=== PATIENT | male | born 1985 | race Caucasian/White ===

== ENCOUNTER 2017-04-23 20:08 | Emergency (ER) | payer MEDICARE ==
[~2017-04-23 20:08] MED LIST: AMITRIPTYLINE25 MG PEG; AMOXICILLIN 8751 TAB PO; AMOXICILLIN/CLA1 TA1 PO; ANTIBIOTIC; BACLOFEN PO; BACLOFEN20 MG PO; BACTRIM DS 8001 TAB PO; BUSPAR10 MG PEG; CELEXA10 MG PO; CELEXA40 MG PEG; CEPHALEXIN500 M1 PO; COMBIVENT INH14.7 GM IH; DOXYCYCLINE 10100 MG PO; FLEXERIL 1010 MG/TAB PEG; FLONASEALLERGY NS; FLOXIN OTIC DROP5 ML OT; GABAPENTIN PEG; GABAPENTIN300 M1 PO; KLONOPIN 0.5MG0.5 MG PO; LORTAB 5/500 501 TAB PO; MINOCYCLINE100 MG PEG; MINOCYCLINE100 MG PO; NO HOME MEDICATIONS; NORCO 325 MG-51 TA1 PO; NORCO 325 MG-51 TAB PO; NORCO 325 MG-7.1 TAB PO; OMEPRAZOLE D/R20 MG PO; OMNICEF 300MG300 MG PO; OXY IR5 MG PO; PERCOCET 325 MG1 TA2 PO; PERCOCET 325 MG1 TAB PO; PHENERGAN 25 TA25 MG PO; PHENERGAN25 MG RC; PRILOSEC 20MG20 MG PEG; SEROQUEL100 MG PO; SEROQUEL200 MG PO; TUSS PO; XANAX 0.5MG0.5 MG PO; ZANAFLEX CAPSULE6 MG PO; ZOFRAN 4MG T4 MG/TAB PO
[2017-04-23 20:14] VITALS: BP 138/78; TEMP 97.9
[2017-04-23] MEDS ORDERED: NORCO 325 MG-51 TAB PO (21:05)
[2017-04-23 21:19] VITALS: PULSE 102
== END 2017-04-23 21:20 | disposition home or self-care (01) ==
LOC: COL.ER 20:08
DX: M53.3 Sacrococcygeal disorders, not elsewhere classified (principal); W01.0XXA Fall on same level from slipping, tripping and stumbling without subsequent striking against object, initial encounter

== ENCOUNTER 2018-05-09 04:34 | Observation (INO) | payer MEDICARE, MEDICAID ==
[~2018-05-09] VITALS: Ht 182.9 cm; Wt 73.3 kg
[2018-05-09] VITALS (7 sets, daily range): BP systolic 93–118; BP diastolic 52–66; PULSE 70–90; TEMP 98–98.1
[2018-05-09 05:50] LABS: BASO # 0.1 (0.0-0.2); BASO % 0.7 % (0.0-2.0); EOS # 0.2 (0.0-0.7); EOS % 2.4 % (0-4.0); GRAN # 3.8 (1.4-6.5); GRAN % 55.9 % (42.2-75.2); HEMATOCRIT 46.2 % (42.0-52.0); HEMOGLOBIN 15.4 g/dl (13.5-18.0); LYMPH # 2.1 (1.2-3.4); MEAN CELL VOLUME 90 fl (80.0-100.0); MEAN CORPUSCULAR HEMOGLOBIN 30 pg (27.0-31.0); MEAN CORPUSCULAR HGB CONC 33 g/dl (33.0-37.0); MEAN PLATELET VOLUME 10.1 fl (7.4-10.4); MONO # 0.7 (0.1-0.6); MONO % 9.6 % (1.7-9.3); PLATELET COUNT 372 K/mm3 (130-400); RED BLOOD COUNT 5.11 M/mm3 (4.20-5.60); REDCELL DISTRIBUTION WIDTH-CV 12.3 % (11.5-14.5)
[2018-05-09 06:05] LABS: ALANINE AMINOTRANSFERASE 23 U/L (21-72); ALBUMIN 3.9 gm/dL (3.5-5.0); ALKALINE PHOSPHATASE 57 U/L (50-136); ANION GAP 6 mmol/L (7-16); AST,SGOT 32 U/L (15-37); BILIRUBIN,TOTAL 0.8 mg/dL (0.0-1.0); BLOOD UREA NITROGEN 11 mg/dL (9-20); CALCIUM 9.3 mg/dL (8.4-10.2); CARBON DIOXIDE 30 mmol/L (22-30); CHLORIDE 100 mmol/L (98-107); CREATININE, serum 0.68 mg/dL (0.66-1.25); GLUCOSE 95 mg/dL (74-106); POTASSIUM 4.6 mmol/L (3.4-5.0); SODIUM 137 mmol/L (137-145); TOTAL PROTEIN 7.3 gm/dL (6.4-8.2)
[2018-05-09 06:11] LABS: C-REACTIVE PROTEIN < 0.5 mg/dL (0.0-0.9)
[2018-05-09 06:14] LABS: ERYTHROCYTE SEDIMENTATION RATE 1 mm/hr (0-15)
--- NOTE | 2018-05-09 18:00 | NUR ---
Admission assessments completed. Patient has been sleeping most the time since he arrived from the ED. Pain has been controlled with his home doses of medications. No complaints of nausea. Patieht has been tolerating his diet well. No other changes at this time. Call light within reach.
--- NOTE | 2018-05-09 20:34 | NUR ---
Pt in bed watchinh TV, shift assessments complete, Pt left with call light in reach, bed in lowest position.
[2018-05-10 03:21] VITALS: BP 105/83; PULSE 63; TEMP 97.8
--- NOTE | 2018-05-10 05:27 | NUR ---
Pt has slept some during the night, he has shown no confusion or aggitation, Pt has not C/O pain during the shift, VS have rermained stable.
[2018-05-10 07:21] VITALS: BP 117/69; PULSE 91; TEMP 98.2
--- NOTE | 2018-05-10 09:36 | NUR ---
Patient resting in bed. Reports chronic back pain. Am medications given. Iv antibioics given. Will monitor
[2018-05-10 10:07] LABS: TRICYCLIC ANTIDEPRESS URINE NEGATIVE
[2018-05-10 10:10] LABS: BASO % 0.7 % (0.0-2.0); EOS # 0.1 (0.0-0.7); EOS % 2.4 % (0-4.0); GRAN % 51.5 % (42.2-75.2); HEMATOCRIT 44.9 % (42.0-52.0); HEMOGLOBIN 14.9 g/dl (13.5-18.0); LYMPH # 1.9 (1.2-3.4); LYMPH % 33.1 % (20.0-51.0); MEAN CELL VOLUME 91 fl (80.0-100.0); MEAN CORPUSCULAR HEMOGLOBIN 30 pg (27.0-31.0); MEAN CORPUSCULAR HGB CONC 33 g/dl (33.0-37.0); MEAN PLATELET VOLUME 9.9 fl (7.4-10.4); MONO # 0.7 (0.1-0.6); MONO % 11.8 % (1.7-9.3); PLATELET COUNT 343 K/mm3 (130-400); RED BLOOD COUNT 4.94 M/mm3 (4.20-5.60); REDCELL DISTRIBUTION WIDTH-CV 12.5 % (11.5-14.5)
[2018-05-10 10:19] LABS: CALCIUM 8.7 mg/dL (8.4-10.2); CREATININE, serum 0.65 mg/dL (0.66-1.25); POTASSIUM 4.2 mmol/L (3.4-5.0)
--- NOTE | 2018-05-10 11:27 | NUR ---
SW attended clinical rounds. The patient lives in [place] with his mother, Luann. He reports independence with ADLs and uses a wheelchair for mobility. The patient's PCP is Dr. Rohit Shankar and he receives his medications at the [facility]. He reports no difficulties obtaining his meds. The hospitalist and SW addressed the patient's meth use. 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 The patient reports that this has been motivation to stop using. He states that he receives outpatient treatment at [facility] in [place] and plans to resume that upon discharge. The patient plans to return home with his mother upon discharge. No additional needs at this time.
[2018-05-10] MEDS ORDERED: MONODOX100 PO (12:02)
--- NOTE | 2018-05-10 13:13 | NUR ---
hospitalist team rounded, discharge paperwork completed. 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 Patient knows he needs to stop drug use. He is worried about his mom and his possibilty of having mrsa. We reviewed. Patient wheeled out with all belonings. His mother taking home.
== END 2018-05-10 13:20 | disposition home or self-care (01) ==
LOC: COL.ER 04:34 → SURG 06:45
PROVIDERS: Emergency Medicine; Nurse Practitioner Family; Physician Assistant; ADMIT Internal Medicine
DX: M79.89 Other specified soft tissue disorders (principal); L03.115 Cellulitis of right lower limb; G81.91 Hemiplegia, unspecified affecting right dominant side; F19.10 Other psychoactive substance abuse, uncomplicated; F17.210 Nicotine dependence, cigarettes, uncomplicated; Z85.47 Personal history of malignant neoplasm of testis; Z90.79 Acquired absence of other genital organ(s)
CPT/HCPCS: A4216; G0378; J0696; J1650; J1885; J3370; J7030; J7050

== ENCOUNTER 2019-02-14 07:56 | Emergency (ER) | payer MEDICARE ==
[~2019-02-14] VITALS: Ht 182.9 cm; Wt 72.7 kg
[~2019-02-14 07:56] MED LIST changes: +MONODOX100 PO
--- NOTE | 2019-02-14 10:10 | NUR ---
contacted by emergency department staff to obtain lab. Patient has very limited means for attempting lab draws. Attempted to draw lab from right forearm with a butterfly gauge needle. Attempted twice with site cleansed with ChloraPrep. Lab drawn. Unable to obtain all lab tests as ordered. RN will contact ED physician.
[2019-02-14 10:26] LABS: BASO % 0.6 % (0.0-2.0); EOS # 0.2 (0.0-0.7); EOS % 2.7 % (0-4.0); GRAN # 3.9 (1.4-6.5); GRAN % 61.7 % (42.2-75.2); HEMATOCRIT 40.7 % (42.0-52.0); LYMPH # 1.5 (1.2-3.4); LYMPH % 23.9 % (20.0-51.0); MEAN CELL VOLUME 90 fl (80.0-100.0); MEAN CORPUSCULAR HEMOGLOBIN 31 pg (27.0-31.0); MEAN CORPUSCULAR HGB CONC 34 g/dl (33.0-37.0); MEAN PLATELET VOLUME 10.5 fl (7.4-10.4); MONO # 0.7 (0.1-0.6); MONO % 10.8 % (1.7-9.3); PLATELET COUNT 276 K/mm3 (130-400); RED BLOOD COUNT 4.55 M/mm3 (4.20-5.60)
[2019-02-14 10:36] LABS: ALBUMIN 3.6 gm/dL (3.5-5.0); BILIRUBIN,TOTAL 0.4 mg/dL (0.0-1.0); CALCIUM 8.7 mg/dL (8.4-10.2); CREATININE, serum 0.49 (0.66-1.25); POTASSIUM 4.3 mmol/L (3.4-5.0); TOTAL PROTEIN 6.5 gm/dL (6.4-8.2)
[2019-02-14 11:23] LABS: COLLECTION METHOD CLEAN CATCH
[2019-02-14 11:34] LABS: MUCOUS Present /lpf; PH 7 (5-8); SQUAMOUS EPITHELIAL None Seen /hpf; URINE APPEARANCE Clear; URINE BACTERIA None Seen /hpf; URINE BILIRUBIN Negative (NEGATIVE); URINE BLOOD Negative (NEGATIVE); URINE COLOR Yellow; URINE GLUCOSE Negative (NEGATIVE); URINE KETONE Trace (NEGATIVE); URINE LEUKOCYTE ESTERASE Negative (NEGATIVE); URINE NITRATE Negative (NEGATIVE); URINE PROTEIN(semi-quant) Negative (NEGATIVE); URINE RBC None Seen /hpf
[2019-02-14] MEDS ORDERED: PROAIR HFA0.09 MG/AC IH (12:36)
[2019-02-14] MEDS ORDERED: ZITHROMAX Z PA250 MG PO (12:36)
[2019-02-14] MEDS ORDERED: PREDNISONE20 MG PO (12:36)
[2019-02-14 13:00] VITALS: BP 128/80; PULSE 93; TEMP 97.8
== END 2019-02-14 13:01 | disposition home or self-care (01) ==
LOC: COL.ER 07:56
PROVIDERS: Emergency Medicine
DX: J20.9 Acute bronchitis, unspecified (principal); F17.210 Nicotine dependence, cigarettes, uncomplicated; Z85.47 Personal history of malignant neoplasm of testis
CPT/HCPCS: J7030

== ENCOUNTER 2021-09-08 00:21 | Emergency (ER) | payer MEDICARE ==
[~2021-09-08] VITALS: Ht 182.9 cm; Wt 72.7 kg
[~2021-09-08 00:21] MED LIST changes: +PREDNISONE20 MG PO; +PROAIR HFA0.09 MG/AC IH; +ZITHROMAX Z PA250 MG PO
[2021-09-08 00:25] VITALS: TEMP 97.9
[2021-09-08 02:29] LABS: BASO # 0.1 K/mm3 (0.0-0.2); BASO % 0.5 % (0.0-2.0); EOS # 0.2 K/mm3 (0.0-0.7); GRAN # 8.4 K/mm3 (1.4-6.5); GRAN % 71.2 % (42.2-75.2); HEMATOCRIT 46.2 % (42.0-52.0); HEMOGLOBIN 15.5 g/dl (13.5-18.0); LYMPH # 1.6 K/mm3 (1.2-3.4); LYMPH % 13.9 % (20.0-51.0); MEAN CELL VOLUME 89 fl (80.0-100.0); MEAN CORPUSCULAR HEMOGLOBIN 30 pg (27-31); MEAN CORPUSCULAR HGB CONC 34 g/dl (33.0-37.0); MEAN PLATELET VOLUME 9.9 fl (7.4-10.4); MONO # 1.4 K/mm3 (0.1-0.6); PLATELET COUNT 313 K/mm3 (130-400); RED BLOOD COUNT 5.18 M/mm3 (4.20-5.60); REDCELL DISTRIBUTION WIDTH-CV 12.3 % (11.5-14.5)
[2021-09-08 02:46] LABS: BILIRUBIN,TOTAL 1.5 mg/dL (0.2-1.2); CALCIUM 8.6 mg/dL (8.4-10.2); CREATININE, serum 0.69 mg/dL (0.72-1.25); POTASSIUM 3.7 mmol/L (3.5-4.5); TOTAL PROTEIN 7.4 gm/dL (6.2-8.1)
[2021-09-08 05:48] VITALS: BP 121/72
[2021-09-08 14:50] VITALS: PULSE 103
--- NOTE | 2021-09-09 08:30 | NUR ---
(LATE ENTRY) On 09/08/21 [facility] met with patient who is ready for discharge from ED however does not have transportation home. Patient states he lives in [place] with his mother, Luann but instructs SW not to call her. Patient does not want her to know he is in the ED and worry her. Patient also advised Luann does not drive so there is nothing she can do to help. Patient states he came to [place] with a friend from high school, then his phone so his friend could not reach him and had to return to [place]. Patient advised his friend does not have the gas money to come get him. Per ED report, patient has been on the streets in [place] with no food. SW asked patient if his mother was worried since he hasn't been home a couple days. Patient states his mom knows that he comes and goes, he also states he checks in with her when he can. Patient reports he has [employer] so SW provided education on transportation services. Patient was unaware [employer] provided discharge education. SW set up transportation for patient (trip #[id number]) and provided picker window to patient and RN.
== END 2021-09-08 14:50 | disposition home or self-care (01) ==
LOC: COL.ER 00:21
PROVIDERS: Nurse Practitioner
DX: R53.1 Weakness (principal); F17.210 Nicotine dependence, cigarettes, uncomplicated; Z28.310 Unvaccinated for COVID-19; Z86.69 Personal history of other diseases of the nervous system and sense organs
CPT/HCPCS: J7030